=== PATIENT | female | born 1965 ===

== ENCOUNTER 2017-09-19 20:15 | Emergency (ER) | payer OTHER ==
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
[2017-09-19 20:58] VITALS: BP 138/92; PULSE 68; TEMP 98.6; BMI 25.4
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
== END 2017-09-19 22:28 | disposition home or self-care (01) ==
LOC: JER 20:15
DX: S09.8XXA Other specified injuries of head, initial encounter (principal); V47.6XXA Car passenger injured in collision with fixed or stationary object in traffic accident, initial encounter; Y92.488 Other paved roadways as the place of occurrence of the external cause; Y93.89 Activity, other specified; Y99.8 Other external cause status
CPT/HCPCS: 99281-25